=== PATIENT | male | born 1970 | race Caucasian/White ===

== ENCOUNTER 2017-07-23 07:30 | Emergency (ER) | payer BC, SELFPAY ==
[2017-07-23 07:46] VITALS: BP 149/95; PULSE 103; RESP 18; TEMP 37.1; O2SAT 96; BMI 28.5
--- NOTE | 2017-07-23 08:08 | HMH.EDWNDL ---
ED Disposition Clinical Impression: Laceration Disposition: Home, Self-Care Condition on Discharge: Good Instructions: DI for Laceration Repair Additional Instructions: suture out 10 days Referrals: Josh Crane MD [Primary Care Provider] - - Critical Care Critical Care Time: No Attestation: On 07/23/17, the high probability of a clinically significant, sudden or life threatening deterioration of the following system(s) required my full and direct attention, intervention and personal management. The time I documented below is in addition to time spent performing reported procedures but includes the following listed in this critical care notation. Medical Decision Making - Medical Records Medical records reviewed: Yes: I reviewed the patient's medical records. Vital Signs: 07/23/17 07:46 Temperature 98.8 F Temperature Source Oral Pulse Rate [Right Brachial] 103 H Respiratory Rate 18 Blood Pressure [Right Arm] 149/95 Blood Pressure Mean [Right Arm] 113 Blood Pressure Source [Right Arm] Automatic Cuff Blood Pressure Position [Right Arm] Sitting 02 Sat by Pulse Oximetry 96 Oxygen Delivery Method Room Air - Lab Data Lab results reviewed: Yes: I reviewed the patient's lab results. Orders (Tests/Meds): ED MEDICATIONS Discontinued Medications Generic Name Dose Route Start Last Admin Trade Name Freq PRN Reason Stop Dose Admin Tetanus/Diphtheria Toxoids 0.5 ml 07/23/17 07:53 07/23/17 07:54 Tenivac 0.5ml Syringe IM 07/23/17 07:54 0.5 ml .ONCE ONE Administration - Adalberto Inquiry Pt receiving controlled substance: No Wound/Laceration HPI - General Chief Complaint: Wound/Laceration Stated Complaint: laceration index finger left hand Time Seen by Provider: 07/23/17 08:08 Mode of Arrival: Ambulatory Source of Information: Patient, Medical Record Limitations: No Limitations Description of Symptoms (Recalled from ER Triage Doc. by RN): laceration to first finger left hand - History of Present Illness HPI narrative: laceration lt index finger at home this am Onset (ago): hour(s) Extremity Location: Left: hand Place: home Patient tetanus UTD: No Context: accidental Associated symptoms: pain - Related Data Home Medications Medication Instructions Recorded Confirmed Aspirin [Aspir 81] 81 mg PO DAILY 07/23/17 07/23/17 Esomeprazole Magnesium [Nexium] 40 mg PO DAILY 07/23/17 07/23/17 Quetiapine Fumarate 25 mg PO DAILY 07/23/17 07/23/17 Allergies Allergy/AdvReac Type Severity Reaction Status Date / Time NOVAINE Allergy Unknown Uncoded 06/14/17 15:01 [facility] History I have reviewed the patient's past medical history: Yes Laterality Cases: Bilateral: Arthroscopy Knee - *Social History Alcohol Intake: never - Psychiatric History Expresses thoughts of harming self/others: None Suicide Plan Description: No Plan ROS Obtained: Yes All systems reviewed & no additional complaints - Constitutional Constitutional: Denies fever(s) - Eyes Eyes: Denies change in vision - ENT Ears, Nose, Mouth, and Throat: Denies sore throat - Cardiovascular Cardiovascular: Denies chest pain at rest - Respiratory Respiratory: No chest congestion - Gastrointestinal Gastrointestingal: Denies: abdominal pain - Musculoskeletal Musculoskeletal: Denies joint swelling - Integumentary/Breasts Skin/Breast: Reports other (lac) - Neurologic Neurologic: Denies seizure-like activity Physical Exam - General General appearance: alert, in no apparent distress - Head Head exam: normocephalic - Eye Eye exam: Present: PERRL, EOMI. Absent: scleral icterus - ENT ENT exam: Present: mucous membranes moist - Neck Neck exam: Present: trachea midline - Respiratory Respiratory exam: Absent: respiratory distress - Cardiovascular Cardiovascular exam: Present: regular rate - Expanded Upper Extremity Exam Left Hand exam: Present: laceration. Abs
--- NOTE | 2017-07-23 08:11 | ED_ITS ---
ED Disposition Clinical Impression: Laceration Disposition: Home, Self-Care Condition on Discharge: Good Instructions: DI for Laceration Repair Additional Instructions: suture out 10 days Referrals: Josh Crane MD [Primary Care Provider] - - Critical Care Critical Care Time: No Attestation: On 07/23/17, the high probability of a clinically significant, sudden or life threatening deterioration of the following system(s) required my full and direct attention, intervention and personal management. The time I documented below is in addition to time spent performing reported procedures but includes the following listed in this critical care notation. Medical Decision Making - Medical Records Medical records reviewed: Yes: I reviewed the patient's medical records. Vital Signs: 07/23/17 07:46 Temperature 98.8 F Temperature Source Oral Pulse Rate [Right Brachial] 103 H Respiratory Rate 18 Blood Pressure [Right Arm] 149/95 Blood Pressure Mean [Right Arm] 113 Blood Pressure Source [Right Arm] Automatic Cuff Blood Pressure Position [Right Arm] Sitting 02 Sat by Pulse Oximetry 96 Oxygen Delivery Method Room Air - Lab Data Lab results reviewed: Yes: I reviewed the patient's lab results. Orders (Tests/Meds): ED MEDICATIONS Discontinued Medications Generic Name Dose Route Start Last Admin Trade Name Freq PRN Reason Stop Dose Admin Tetanus/Diphtheria Toxoids 0.5 ml 07/23/17 07:53 07/23/17 07:54 Tenivac 0.5ml Syringe IM 07/23/17 07:54 0.5 ml .ONCE ONE Administration - Adalberto Inquiry Pt receiving controlled substance: No Wound/Laceration HPI - General Chief Complaint: Wound/Laceration Stated Complaint: laceration index finger left hand Time Seen by Provider: 07/23/17 08:08 Mode of Arrival: Ambulatory Source of Information: Patient, Medical Record Limitations: No Limitations Description of Symptoms (Recalled from ER Triage Doc. by RN): laceration to first finger left hand - History of Present Illness HPI narrative: laceration lt index finger at home this am Onset (ago): hour(s) Extremity Location: Left: hand Place: home Patient tetanus UTD: No Context: accidental Associated symptoms: pain - Related Data Home Medications Medication Instructions Recorded Confirmed Aspirin [Aspir 81] 81 mg PO DAILY 07/23/17 07/23/17 Esomeprazole Magnesium [Nexium] 40 mg PO DAILY 07/23/17 07/23/17 Quetiapine Fumarate 25 mg PO DAILY 07/23/17 07/23/17 Allergies Allergy/AdvReac Type Severity Reaction Status Date / Time NOVAINE Allergy Unknown Uncoded 06/14/17 15:01 [facility] History I have reviewed the patient's past medical history: Yes Laterality Cases: Bilateral: Arthroscopy Knee - *Social History Alcohol Intake: never - Psychiatric History Expresses thoughts of harming self/others: None Suicide Plan Description: No Plan ROS Obtained: Yes All systems reviewed & no additional complaints - Constitutional Constitutional: Denies fever(s) - Eyes Eyes: Denies change in vision - ENT Ears, Nose, Mouth, and Throat: Denies sore throat - Cardiovascular Cardiovascular: Denies chest pain at rest - Respiratory Respiratory: No chest congestio
[2017-07-23 08:22] VITALS: BP 134/95; PULSE 89; RESP 18; O2SAT 97
== END 2017-07-23 08:24 | disposition home or self-care (01) ==
PROVIDERS: Emergency Provider Emergency Medicine; PCP Family Medicine
DX: S61.211A Laceration without foreign body of left index finger without damage to nail, initial encounter (principal); W26.0XXA Contact with knife, initial encounter; Y92.018 Other place in single-family (private) house as the place of occurrence of the external cause; Z23 Encounter for immunization; F32.9 Major depressive disorder, single episode, unspecified; Z90.49 Acquired absence of other specified parts of digestive tract
CPT/HCPCS: 12002; 90714; 96372; 99282

== ENCOUNTER → 2018-04-18 15:12 | Outpatient (CLI) | payer BC, SELFPAY ==
[2018-04-18 16:36] LABS: Alanine Aminotransferase 36 U/L (12-78); Albumin Level 3.7 gm/dL (3.4-5.0); Albumin/Globulin Ratio 1.1 (1.1-1.8); Alkaline Phosphatase 81 U/L (46-116); Amylase 95 U/L (25-125); Anion Gap 14.1 mEq/L (5-15); Aspartate Amino Transferase 18 U/L (15-37); Bilirubin,Total 0.9 mg/dL (0.2-1.0); Blood Urea Nitrogen 21 mg/dL (7-18); Calcium 9.1 mg/dL (8.5-10.1); Carbon Dioxide 28 mmol/L (21.0-32.0); Chloride 103 mmol/L (98-107); Creatinine,Serum 1.16 mg/dL (0.70-1.30); Estimated Glomerular Filt Rate 67 ml/min (>60); GFR (African American) 81 ML/MIN (>60); Globulin 3.3 gm/dl (1.3-3.2); Glucose 106 mg/dL (74-106); Lipase 209 u/L (73-393); Potassium 4.1 mmoL/L (3.5-5.1); Sodium 141 mmol/L (136-145)
== END ==
PROVIDERS: PCP Physician Assistant; Visit Provider Physician Assistant
DX: R10.13 Epigastric pain (principal); E87.6 Hypokalemia
CPT/HCPCS: 36415; 80053; 82150; 83690

== ENCOUNTER → 2018-11-14 15:01 | Outpatient (POV) | payer BC, SELFPAY | PROVIDERS: Visit Provider Dermatology | DX: Z00.00 Encounter for general adult medical examination without abnormal findings (principal) ==

== ENCOUNTER → 2019-11-05 11:05 | Outpatient (CLI) | payer BC, SELFPAY ==
--- NOTE | 2019-11-05 11:10 | XR_ITS ---
PROCEDURE: XR SHOULDER RT MIN 2V CLINICAL INDICATION: RT SHOULDER PAIN COMPARISON: CXR CHEST(2 VIEWS-NOT PORTABLE) from 12/23/2015 FINDINGS: No fracture or dislocation. No lytic or blastic change. There is normal mineralization. The joint spaces are well-preserved. No significant degenerative/arthritic changes. No erosive changes evident. Other findings:On the internal rotation view there is a small calcific density overlying the inferior aspect of the glenohumeral joint. Could be due to small bone island or an intra-articular loose body. IMPRESSION: Possible bone island or intra-articular loose body at the inferior glenohumeral region. MRI may provide further Dictated by: Sage Gomez MD 11/05/2019 11:52 Electronically signed by Sage Gomez MD in [place] 11/05/2019 11:52
== END ==
PROVIDERS: PCP Physician Assistant; Visit Provider Physician Assistant
DX: M25.511 Pain in right shoulder (principal)
CPT/HCPCS: 73030

== ENCOUNTER → 2019-12-07 13:35 | Outpatient (CLI) | payer BC, SELFPAY ==
--- NOTE | 2019-12-07 13:41 | XR_ITS ---
PROCEDURE: XR SHOULDER RT MIN 2V CLINICAL INDICATION: shoulder pain COMPARISON: XR SHOULDER RT MIN 2V from 11/05/2019 FINDINGS: There are minimal osteoarthritic changes of the glenohumeral joint. No fracture or dislocation is evident. There is some mild hyperostosis along the inferior aspect of the acromion with subacromial stenosis. Previously noted calcification overlying the inferior glenoid region is not well demonstrated on today's exam and may be due to some ossification along the lesser tubercle which projected into the region of the joint space on the previous exam. That image is not reproduced on today's exam. No obvious intra-articular loose body evident. IMPRESSION: Mild osteoarthritis of the right shoulder as described above. Dictated by: Sage Gomez MD 12/07/2019 14:12 Electronically signed by Sage Gomez MD in [place] 12/07/2019 14:12
== END ==
PROVIDERS: PCP Physician Assistant; Visit Provider Orthopaedic Surgery
DX: M25.511 Pain in right shoulder (principal)
CPT/HCPCS: 73030

== ENCOUNTER → 2020-01-02 11:12 | Outpatient (CLI) | payer BC, SELFPAY ==
--- NOTE | 2020-01-02 11:33 | ECG_ITS ---
APPROVED REPORT Exam: Resting ECG HR:67 bpm ECG Measurements Heart Rate 67 AXES NE 140 P 30 QRSd 98 QRS -25 QT 404 T 24 QTc 426 <Conclusion> Normal sinus rhythm Normal ECG Electronically signed by : Jose C Canela, 01/02/2020 14:10:14
[2020-01-02 11:36] LABS: Basophils # 0.1 K/mm3 (0-0.2); Basophils % 0.7 % (0.1-2.0); Eosinophils # 0.2 K/mm3 (0.0-0.4); Eosinophils % 2.3 % (0.1-12.0); Hematocrit 40.2 % (42.0-52.0); Hemoglobin 14.2 g/dL (14.1-18.0); Lymphocytes # 2.5 K/mm3 (0.7-4.5); Lymphocytes % 35.3 % (10-50); Mean Corpuscular HGB Conc 35.4 g/dL (31.8-35.4); Mean Corpuscular Hemoglobin 32.5 pg (27.0-31.2); Mean Corpuscular Volume 91.9 fl (80-94); Mean Platelet Volume 7.5 fl (7.4-10.4); Monocytes # 0.5 K/mm3 (0.1-1.0); Monocytes % 7.5 % (1.7-9.3); Neutrophils # 3.9 K/mm3 (1.8-7.8); Neutrophils % 54.3 % (37.0-80.0); Platelet Count 251 K/mm3 (142-424); Red Blood Count 4.38 M/mm3 (4.60-6.20); Red Cell Distribution Width 13.6 % (11.5-17.5); White Blood Count 7.1 K/mm3 (4.8-10.8)
[2020-01-02 13:22] LABS: Alanine Aminotransferase 36 U/L (12-78); Albumin/Globulin Ratio 1.4 (1.1-1.8); Alkaline Phosphatase 72 U/L (38-126); Anion Gap 13.3 mEq/L (5-15); Aspartate Amino Transferase 42 U/L (17-59); Bilirubin,Total 1.4 mg/dl (0.2-1.3); Blood Urea Nitrogen 21 mg/dl (9-20); Calcium 9.3 mg/dl (8.4-10.2); Carbon Dioxide 23 mmol/L (22.0-30.0); Chloride 103 mmol/L (98-107); Estimated Glomerular Filt Rate 79 ml/min (>60); GFR (African American) 96 ML/MIN (>60); Globulin 2.8 g/dL (1.3-3.2); Glucose 97 mg/dl (74-100); Potassium 4.3 mmoL/L (3.5-5.1); Sodium 135 mmol/L (136-145); Total Protein,Serum 6.8 g/dl (6.3-8.2)
== END ==
PROVIDERS: Visit Provider Orthopaedic Surgery
DX: R07.9 Chest pain, unspecified (principal); R79.9 Abnormal finding of blood chemistry, unspecified
CPT/HCPCS: 36415; 80053; 85025; 93005

== ENCOUNTER → 2020-03-31 15:13 | Outpatient (CLI) | payer BC, SELFPAY ==
--- NOTE | 2020-03-31 15:17 | US_ITS ---
PROCEDURE: US EXTREMITY LT LIMITED CLINICAL INDICATION: LT INGUINAL PAIN Palpable abnormality left lower abdomen COMPARISON: No exams were available for comparison FINDINGS: There is an oblong area of slight increased echogenicity within the subcutaneous tissues in the left lower quadrant measuring 15 x 8 mm overall with some increased echogenicity. Centrally there is a small area of decreased echogenicity. This is nonspecific of questionable clinical significance. Possibly related to a lymph node. A muscular mass or hematoma is also consideration. Consider CT or MRI for more thorough evaluation. IMPRESSION: 15 mm nodular lesion along the left lower quadrant anterior abdominal wall which could represent an atypical lymph node, neuroma, muscular mass, or hematoma. Consider CT or MRI for more thorough evaluation. Dictated by: Sage Gomez MD 03/31/2020 16:23 Sage Gomez MD in [place] 03/31/2020 16:23
== END ==
PROVIDERS: PCP Physician Assistant; Visit Provider Nurse Practitioner
DX: R10.32 Left lower quadrant pain (principal)
CPT/HCPCS: 76882

== ENCOUNTER → 2022-08-25 16:30 | Outpatient (CLI) | payer BC, SELFPAY ==
--- NOTE | 2022-08-25 | XR_ITS ---
PROCEDURE INFORMATION: Exam: XR Right Knee Exam date and time: 08/25/2022 4:38 PM Age: 52 years old Clinical indication: Pain; Knee; Right; Additional info: Right knee pain -- no injury TECHNIQUE: Imaging protocol: Radiologic exam of the right knee. Views: 3 views. COMPARISON: No relevant prior studies available. FINDINGS: Bones/joints: Advanced moderate to severe degenerative changes of the medial compartment with joint space narrowing and spurring. Mild degenerative spurring of the lateral and patellofemoral compartments. No other bone or joint finding. No significant effusion. Soft tissues: Normal. IMPRESSION: Degenerative changes most pronounced medially.
== END ==
PROVIDERS: PCP Physician Assistant; Visit Provider Physician Assistant
DX: M25.561 Pain in right knee (principal)
CPT/HCPCS: 73562

== ENCOUNTER 2023-04-13 10:00 | Outpatient (RCR) | payer BC, SELFPAY | END 2023-04-13 10:05 | disposition home or self-care (01) | LOC: PT 10:00 | PROVIDERS: PCP Physician Assistant; Visit Provider Physician Assistant | DX: M25.561 Pain in right knee (principal); Z96.651 Presence of right artificial knee joint | CPT/HCPCS: 97014; 97110; 97140; 97163; 97164; 97530; G0283 ==

== ENCOUNTER 2023-08-12 14:56 | Outpatient (CLI) | payer BC, SELFPAY ==
[2023-08-12 16:07] LABS: Alanine Aminotransferase 33 U/L (12-78); Albumin/Globulin Ratio 1.7 (1.1-1.8); Alkaline Phosphatase 66 U/L (38-126); Anion Gap 7.7 mEq/L (5-15); Aspartate Amino Transferase 35 U/L (17-59); Bilirubin,Total 1.4 mg/dl (0.2-1.3); Blood Urea Nitrogen 13 mg/dl (9-20); Calcium 9.1 mg/dl (8.4-10.2); Carbon Dioxide 29 mmol/L (22.0-30.0); Chloride 105 mmol/L (98-107); Estimated Glomerular Filt Rate 101 ml/min (>60); GFR (African American) 122 ML/MIN (>60); Globulin 2.3 g/dL (1.3-3.2); Glucose 94 mg/dl (74-100); Potassium 3.7 mmoL/L (3.5-5.1); Sodium 138 mmol/L (136-145); Total Protein,Serum 6.3 g/dl (6.3-8.2)
[2023-08-12 16:37] LABS: Thyroid Stimulating Hormone 0.52 uIU/mL (0.465-4.68)
[2023-08-13 11:13] LABS: Rapid Plasma Reagin Ab Titer Non Reactive titer (NonRea<1:1)
== END 2023-08-12 23:59 ==
LOC: LAB 14:57
PROVIDERS: PCP Physician Assistant; Visit Provider Nurse Practitioner Family
DX: G43.119 Migraine with aura, intractable, without status migrainosus (principal); R42 Dizziness and giddiness; R25.1 Tremor, unspecified
CPT/HCPCS: 36415; 80053; 82746; 84443; 86593

== ENCOUNTER 2023-09-23 14:32 | Outpatient (CLI) | payer BC, SELFPAY ==
[2023-09-23 14:53] LABS: Basophils # 0.1 K/mm3 (0-0.2); Basophils % 1.1 % (0.1-2.0); Eosinophils # 0.1 K/mm3 (0.0-0.4); Eosinophils % 1.7 % (0.1-12.0); Hematocrit 41.7 % (42.0-52.0); Lymphocytes # 1.8 K/mm3 (0.7-4.5); Lymphocytes % 22.4 % (10-50); Mean Corpuscular HGB Conc 33.5 g/dL (31.8-35.4); Mean Corpuscular Hemoglobin 32.6 pg (27.0-31.2); Mean Corpuscular Volume 97.2 fl (80-94); Mean Platelet Volume 7.8 fl (7.4-10.4); Monocytes # 0.6 K/mm3 (0.1-1.0); Monocytes % 7.7 % (1.7-9.3); Neutrophils # 5.3 K/mm3 (1.8-7.8); Neutrophils % 67.2 % (37.0-80.0); Platelet Count 254 K/mm3 (142-424); Red Blood Count 4.29 M/mm3 (4.60-6.20); Red Cell Distribution Width 13.6 % (11.5-17.5); White Blood Count 7.9 K/mm3 (4.8-10.8)
[2023-09-23 15:23] LABS: Prothrombin Time 10.8 seconds (10.1-12.5)
[2023-09-23 15:48] LABS: Anion Gap 8.6 mEq/L (5-15); Blood Urea Nitrogen 17 mg/dl (9-20); Calcium 9.4 mg/dl (8.4-10.2); Carbon Dioxide 28 mmol/L (22.0-30.0); Chloride 105 mmol/L (98-107); Estimated Glomerular Filt Rate 88 ml/min (>60); GFR (African American) 107 ML/MIN (>60); Glucose 89 mg/dl (74-100); Potassium 3.6 mmoL/L (3.5-5.1); Sodium 138 mmol/L (136-145)
== END 2023-09-23 23:59 ==
LOC: LAB 14:33
PROVIDERS: PCP Physician Assistant
DX: I67.1 Cerebral aneurysm, nonruptured (principal)
CPT/HCPCS: 36415; 80048; 85025; 85610

== ENCOUNTER 2024-06-25 14:24 | Outpatient (CLI) | payer OTHER, SELFPAY ==
--- NOTE | 2024-06-25 14:30 | XR_ITS ---
FINAL REPORT CLINICAL HISTORY: left foot fx FINDINGS: LEFT FOOT Three views of the left foot demonstrate fractures of the distal shafts of the fourth and fifth metatarsals without extension to the MTP joints. No additional fracture is identified. The visualized joint spaces are normally aligned. Forefoot soft tissue edema is noted. IMPRESSION: Fractures of the distal shafts of the fourth and fifth metatarsals. Reviewed, Interpreted and Dictated by Evelin Mott MD Transcribed by Brianna Escobar Authenticated and [facility]
== END 2024-06-25 23:59 | disposition home or self-care (01) ==
LOC: RAD 14:27
PROVIDERS: PCP Physician Assistant; Visit Provider Physician Assistant Surgical
DX: M79.672 Pain in left foot (principal); S92.352A Displaced fracture of fifth metatarsal bone, left foot, initial encounter for closed fracture
CPT/HCPCS: 73630

== ENCOUNTER 2024-07-24 11:33 | Outpatient (CLI) | payer OTHER, SELFPAY ==
--- NOTE | 2024-07-24 11:36 | XR_ITS ---
FINAL REPORT CLINICAL HISTORY: Lt Foot Pain FINDINGS: Left foot Three views were obtained. There are oblique fractures through the distal fourth and fifth metatarsals. There may be mild callus formation consistent with acute or subacute fractures. There is no intra-articular extension. IMPRESSION: Acute or subacute fractures of the distal fourth and fifth metatarsals. Reviewed, Interpreted and Dictated by Deniz Sam MD Transcribed by Nay Zarate Authenticated and [facility]
== END 2024-07-24 23:59 | disposition home or self-care (01) ==
LOC: RAD 11:35
PROVIDERS: PCP Physician Assistant; Visit Provider Physician Assistant
DX: M79.672 Pain in left foot (principal); S92.352A Displaced fracture of fifth metatarsal bone, left foot, initial encounter for closed fracture
CPT/HCPCS: 73630

== ENCOUNTER 2024-08-30 12:13 | Outpatient (CLI) | payer OTHER, SELFPAY ==
--- NOTE | 2024-08-30 12:19 | XR_ITS ---
FINAL REPORT CLINICAL HISTORY: 4th and 5th metatarsal fracture in may COMPARISON: 07/24/2024 FINDINGS: LEFT FOOT Three views were obtained. There are transverse fractures of the distal fourth and fifth metatarsals with significant bone healing. Fracture lines are less distinct. There is no further displacement. There are moderate degenerative changes of the ankle joint. IMPRESSION: Healing of the distal fourth and fifth metatarsal fractures. Reviewed, Interpreted and Dictated by Clemente Coffey MD Transcribed by Nay Zarate Authenticated and [facility]
== END 2024-08-30 23:59 | disposition home or self-care (01) ==
LOC: RAD 12:16
PROVIDERS: PCP Physician Assistant; Visit Provider Physician Assistant
DX: M79.672 Pain in left foot (principal)
CPT/HCPCS: 73630